=== PATIENT | female | born 1980 | race African-American/Black ===

== ENCOUNTER 2019-05-07 17:08 | Emergency (ER) | payer OTHER ==
[~2019-05-07] VITALS: Ht 165.1 cm; Wt 73.0 kg
[2019-05-07 19:53] VITALS: BP 124/64
== END 2019-05-07 19:56 | disposition home or self-care (01) ==
LOC: ER 17:08
DX: S61.301A Unspecified open wound of left index finger with damage to nail, initial encounter (principal); S61.303A Unspecified open wound of left middle finger with damage to nail, initial encounter; Y08.89XA Assault by other specified means, initial encounter; Y93.89 Activity, other specified; Y92.89 Other specified places as the place of occurrence of the external cause; Y99.8 Other external cause status
CPT/HCPCS: 99281